=== PATIENT | male | born 1970 | race Caucasian/White ===

== ENCOUNTER 2016-10-01 10:47 | Emergency (ER) | payer BC ==
[2016-10-01 11:59] LABS: UDS - AMPHET NEGATIVE QUAL (NEGATIVE); UDS - BARB NEGATIVE QUAL (NEGATIVE); UDS - BENZO NEGATIVE QUAL (NEGATIVE); UDS - COCAINE NEGATIVE QUAL (NEGATIVE); UDS - METH NEGATIVE QUAL (NEGATIVE); UDS - OPIATE NEGATIVE QUAL (NEGATIVE); UDS - PCP NEGATIVE QUAL (NEGATIVE); UDS - THC NEGATIVE QUAL (NEGATIVE)
[2016-10-01 12:14] LABS: BASOPHILS 0.3 % (0.0-2.0); EOSINOPHILS 0.1 % (0-7); HEMATOCRIT 47.7 % (42.0-54.0); HEMOGLOBIN 16.7 g/dL (13.5-17.5); IMMATURE GRANULOCYTES 0.2 % (0-5); LYMPHOCYTES 4.4 % (15-50); MCH 34.2 pg (26.0-34.0); MCV 97.5 fL (80.0-100.0); MEAN PLATELET VOLUME 10.3 fL (7.4-10.4); MONOCYTES 9.4 % (2-11); NEUTROPHILS 85.6 % (40-80); PLATELET COUNT 162 10x3/uL (130-400); RBC 4.89 10x6/uL (4.20-6.10); RDW 12.4 % (11.5-14.5); WBC 8.9 10x3/uL (4.8-10.8)
[2016-10-01 12:23] LABS: APTT 29.8 SECONDS (22.8-39.4); INR 1.04 (0.85-1.17); PROTIME 13.4 SECONDS (11.6-15.0)
[2016-10-01 12:32] LABS: ALBUMIN 4.7 g/dL (3.4-5.0); ALKALINE PHOSPHATASE 70 U/L (46-116); ALT (SGPT) 119 U/L (10-68); BILIRUBIN - TOTAL 0.79 mg/dL (0.2-1.3); CALC OSMOLALITY 275 mosm/kg (275-300); CALCIUM 10.2 mg/dL (8.5-10.1); CARBON DIOXIDE 27.3 mmol/L (21.0-32.0); CHLORIDE - SERUM 100 mmol/L (98-107); GLUCOSE 96 mg/dL (74-106); POTASSIUM - SERUM 4.9 mmol/L (3.5-5.1); PROTEIN - SERUM 8.6 g/dL (6.4-8.2); SODIUM 139 mmol/L (136-145); UREA NITROGEN 8 mg/dL (7-18); eGFR NON AFRICAN AMERICAN 85 mL/min (90-120)
[2016-10-01 12:37] LABS: CREATINE KINASE 92 UL (21-232)
[2016-10-01 12:39] LABS: TROPONIN-I < 0.017 ng/mL (0.000-0.060)
== END 2016-10-01 14:50 | disposition home or self-care (01) ==
LOC: D.ER 10:47
PROVIDERS: Emergency Medicine
DX: R42 Dizziness and giddiness (principal); I10 Essential (primary) hypertension